=== PATIENT | male | born 1990 | race Caucasian/White ===

== ENCOUNTER 2017-02-25 01:02 | Emergency (ER) | payer BC ==
[2017-02-25] MEDS ORDERED: CIPROFLOXACIN-HC OTIC SUSP 10 ML AS ONE (03:06)
--- NOTE | 2017-02-25 03:15 | ER Document Report ---
ED General - General Chief Complaint: Ear Pain Stated Complaint: EAR PAIN Notes: Patient is a 26-year-old male presents with complaint of pain in his left ear. Patient's is free days ago gets water in his left ear. Since and he said worsening pain and no pain radiates from the urine to the jaw. No fevers. No vomiting. No redness to the ear. No pain of the mastoid. TRAVEL OUTSIDE OF THE [place] IN LAST 30 DAYS: No Past Medical History - Social History Smoking Status: Current Every Day Smoker Frequency of alcohol use: None Drug Abuse: None Family History: Reviewed & Not Pertinent Patient has suicidal ideation: No Patient has homicidal ideation: No Renal/ Medical History: Denies: Hx Peritoneal Dialysis Review of Systems - Review of Systems Notes: My Normal Review Basic REVIEW OF SYSTEMS: CONSTITUTIONAL : Denies fever, chills, or sweats. Denies recent illness. EENT: Left ear pain RESPIRATORY: Denies cough, cold, or chest congestion. Denies shortness of breath, difficulty breathing, or wheezing. MUSCULOSKELETAL: Denies neck or back pain or joint pain or swelling. SKIN: Denies rash or skin lesions. NEUROLOGICAL: Denies altered mental status or loss of consciousness. Denies headache. ALL OTHER SYSTEMS REVIEWED AND NEGATIVE. Physical Exam - Vital signs Vitals: Temp Pulse Resp BP Pulse Ox 98.4 F 81 18 140/90 H 98 02/25/17 01:06 02/25/17 01:06 02/25/17 01:06 02/25/17 01:06 02/25/17 01:06 - Notes Notes: General Appearance: Well nourished, alert, cooperative, no acute distress, no obvious discomfort. Vitals: reviewed, See vital signs table. Head: no swelling or tenderness to the head Eyes: PERRL, EOMI, Conjuctiva clear Mouth: No decreasd moisture Throat: No tonsillar inflammation, No airway obstruction, No lymphadenopathy Ears: Left external air is normal appearing. The ear canal itself is erythematous and inflamed consistent with beginnings of otitis externa. The TM is visualized and normal appearing. There is no rupture. No redness of the TM. Patient has no tenderness to palpation over the mastoid process. There is no redness or swelling over the mastoid processes. Neck: Supple, no neck tenderness, Skin: warm, dry, appropriate color, no rash Neuro: speech clear, oriented x 3, normal affect, responds appropriately to questions. Course - Vital Signs Vital signs: Temp Pulse Resp BP Pulse Ox 97.8 F 83 18 138/90 H 98 02/25/17 03:45 02/25/17 03:45 02/25/17 03:45 02/25/17 03:45 02/25/17 03:45 - Transfer of Care Notes: 02/25/17 04:47 Patient will be discharged home with Cipro otic. Encourage return to ER if has worsening pain, any redness or swelling over the mastoid processes, fevers, or redness and swelling of the external ear itself. Patient agrees with plan and will be discharged home. Dictation of this chart was performed using voice recognition software; therefore, there may be some unintended grammatical errors. Discharge - Discharge Clinical Impression: Otitis externa Qualifiers: Otitis externa type: unspecified type Laterality: left Chronicity: acute Qualified Code(s): H60.502 - Unspecified acute noninfective otitis externa, left ear Condition: Good Disposition: HOME, SELF-CARE Additional Instructions: Otitis Externa You have otitis externa -- an infection of the outer ear canal. This can be very painful. It's sometimes called "swimmer's ear," because it often occurs after prolonged water exposure. Many things, such as earwax and dirt in the ear, can contribute to it. The usual treatment is antibiotic/antiinflammatory ear drops. Occasionally , a wick will be placed in the ear to draw in the medicine. If the infection is severe, an oral antibiotic may be prescribed. Pain medication is often needed. Avoid getting water in the ear. Outer ear infections often take longer to heal than you might expect. Some tenderness and ache in the ear may persist for about two weeks. See your physician if you fail to improve as expected. Call the doctor at once if you develop fever, increasing swelling (particularly if it makes your ear "poke out"), severe headache, stiff neck, or decreased hearing. Please return to the ER immediately if you develop pain, redness, or swelling over the mastiod ( bone directly posterior to the ear). Please return to [facility] ER imemdiately if you have fevers, swelling of the ER or feel unwell. Please use the cipro otic ear drops as 1 drop in the left ear every 12 hours for 7 days.
[2017-02-25] MEDS ORDERED: CIPROFLOXACIN-HC OTIC SUSP 10 ML ONE (03:34)
[2017-02-25 03:59] VITALS: BP 138/90
== END 2017-02-25 03:45 | disposition home or self-care (01) ==
LOC: ER 01:02
DX: H60.502 Unspecified acute noninfective otitis externa, left ear (principal); H92.02 Otalgia, left ear; F17.200 Nicotine dependence, unspecified, uncomplicated
CPT/HCPCS: 99282; J3490